=== PATIENT | female | born 1950 | race African-American/Black ===

== ENCOUNTER 2017-03-26 23:34 | Emergency (ER) | payer OTHER ==
[~2017-03-26] VITALS: Ht 160 cm; Wt 56.7 kg
--- NOTE | ~2017-03-26 | EKG ---
[address] [address] ELECTROCARDIOGRAM REPORT Name: NAMITA NG [id number] Admission: 03/26/17 Attend Phys: Discharge: 03/27/17 Date of : 52 Report #: [id number] THIS REPORT FOR: //name// [facility] ED Test Date: 2017-03-26 Test Time: 23:56:03 Pat Name: NAMITA NG Department: Room: Gender: F Managed Care Analyst: cwtaran : 1950 Requested By: Logan Golden Order Number: [id number] MD: Sebastian Suero Measurements Intervals Boomer Rate: 56 P: 68 [place]: 129 QRS: 51 QRSD: 92 T: 35 QT: 439 QTc: 424 Interpretive Statements Sinus rhythm Normal tracing No previous ECG available for comparison Electronically Signed On 03-27-2017 8:01:58 CDT by Sebastian Suero [email or web address] <ELECTRONICALLY SIGNED> By: Sebastian Suero MD, [facility] 03/27/17 0801 [id number] Sebastian Suero MD, FACC /EPI
[~2017-03-26 23:34] MED LIST: NOHOMEMEDICATIONS; NORCO 5-325 TA1 EACH PO
[2017-03-27 00:29] LABS: ABSOLUTE NEUTROPHILS 2.2 thou/uL (1.4-8.2); BASOPHILS 0.8 % (0.0-2.0); HEMATOCRIT 39.9 % (37.0-47.0); HEMOGLOBIN 13.4 gm/dL (12.0-15.0); LYMPHOCYTES 44.7 % (24.0-44.0); MCH 30.1 pg (26.0-34.0); MCHC 33.7 g/dL (28.0-37.0); MCV 89.5 fL (80.0-100.0); MONOCYTES 7.9 % (1.0-8.0); PLATELET COUNT 245 thou/uL (150-400); POLYS 42.6 % (36.0-66.0); RBC 4.46 mil/uL (4.20-5.00); RDW 14.1 % (10.5-14.5); WBC 5.2 thou/uL (4.0-11.0)
[2017-03-27 00:30] LABS: MANUAL DIFF NO
[2017-03-27 00:36] LABS: ANION GAP 6 mmol/L (7-16); BUN 16 mg/dL (7-18); CALCIUM 8.3 mg/dL (8.5-10.1); CHLORIDE 109 mmol/L (98-107); CO2 25 mmol/L (21-32); GLUCOSE 98 mg/dL (74-106); POTASSIUM 3.8 mmol/L (3.5-5.1); SODIUM 140 mmol/L (136-145)
[2017-03-27 00:43] LABS: ALBUMIN 3.3 g/dL (3.4-5.0); ALKALINE PHOSPHATASE 91 U/L (46-116); MAGNESIUM 1.9 mg/dL (1.8-2.4); SGOT 21 U/L (15-37); SGPT 22 U/L (30-65); TOTAL BILIRUBIN 0.4 mg/dL (<0.1-1.0); TOTAL PROTEIN 7.1 g/dL (6.4-8.2); TROPONIN-I < 0.04 ng/mL (<0.04-0.07)
[2017-03-27] MEDS ORDERED: NORVASC10 MG PO (00:46)
[2017-03-27 00:48] VITALS: BP 170/84
== END 2017-03-27 00:57 | disposition home or self-care (01) ==
LOC: ER 23:34
PROVIDERS: Emergency Medicine
DX: M54.12 Radiculopathy, cervical region (principal)